=== PATIENT | female | born 1950 | race Caucasian/White ===

== ENCOUNTER 2017-10-01 10:35 | Outpatient (CLI) | payer MEDICARE, OTHER ==
[2017-10-01 11:25] LABS: CALCIUM 9.7 mg/dL (8.5-10.3); CREATININE 0.9 mg/dL (0.4-1.0)
== END 2017-10-01 10:36 | disposition home or self-care (01) ==
LOC: LAB 10:35
PROVIDERS: ATTEND Internal Medicine
DX: M81.0 Age-related osteoporosis without current pathological fracture (principal); Z79.899 Other long term (current) drug therapy
CPT/HCPCS: 36415; 80048

== ENCOUNTER 2017-10-26 09:23 | Outpatient (CLI) | payer MEDICARE, OTHER ==
--- NOTE | 2017-10-26 20:57 | CT Report ---
DATE OF SERVICE: 10/26/2017 CT BRAIN WITHOUT CONTRAST: 10/26/2017 CLINICAL INDICATION: Four-week followup left subdural hematoma. Axial CT images of the brain were obtained without contrast. In accordance with CT protocol optimization, one or more of the following dose reduction techniques were utilized for this exam: Automated exposure control, adjustment of mA and/or KV based on patient size, or use of iterative reconstructive technique. COMPARISON: MRA from [place], [place], dated 09/29/2017 The ventricles and sulci demonstrate moderate symmetric enlargement, compatible with atrophy. There is a left transfrontal ventriculostomy catheter terminating at the midline , and a tract from a previous right transfrontal ventriculostomy catheter is noted in the right frontal white matter. There is a subacute left subdural hematoma, measuring 9 mm at the superior margin of the left lateral ventricle (previously 12mm at a similar level). There is no significant mass effect upon the left lateral ventricle, and no significant midline shift. The basilar cisterns are patent. 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 The visualized orbital contents and paranasal sinuses are unremarkable. IMPRESSION: Subacute left subdural hematoma, decreasing in size from previous MRA, without significant mass effect or midline shift. Left transfrontal ventriculostomy catheter terminating at the midline. TD: 10/26/2017 21:56 HARDY
== END 2017-10-26 09:24 | disposition home or self-care (01) ==
LOC: DI 09:23
PROVIDERS: ATTEND Neurological Surgery
DX: I62.00 Nontraumatic subdural hemorrhage, unspecified (principal)
CPT/HCPCS: 70450

== ENCOUNTER 2017-11-25 09:16 | Outpatient (CLI) | payer MEDICARE, OTHER ==
[2017-11-25 09:43] LABS: BASOPHILS % (AUTO) 0.5 %; EOSINOPHILS # (AUTO) 0.1 10^3/uL (0.0-0.7); EOSINOPHILS % (AUTO) 0.9 %; HGB - HEMOGLOBIN 14.1 g/dL (12.0-16.0); LYMPHOCYTES # (AUTO) 0.8 10^3/uL (1.5-3.5); LYMPHOCYTES % (AUTO) 13.4 %; MEAN CORPUSCULAR HEMOGLOBIN 31.7 pg (27.0-31.0); MEAN CORPUSCULAR HGB CONC 34.4 g/dL (32.0-36.0); MEAN CORPUSCULAR VOLUME 92.4 fL (81.0-99.0); MEAN PLATELET VOLUME 7.3 fL (7.9-10.8); MONOCYTES # (AUTO) 0.5 10^3/uL (0.0-1.0); MONOCYTES % (AUTO) 7.9 %; NEUTROPHILS # (AUTO) 4.8 10^3/uL (1.5-6.6); NEUTROPHILS % (AUTO) 77.3 %; PLT - PLATELET COUNT 200 10^3/uL (130-450); RED BLOOD COUNT 4.44 10^6/uL (4.20-5.40); RED CELL DISTRIBUTION WIDTH 13.1 % (12.0-15.0); WHITE BLOOD COUNT 6.2 x10^3/uL (4.8-10.8)
[2017-11-25 10:10] LABS: ALBUMIN 4.2 g/dL (3.2-5.5); ALBUMIN/GLOBULIN RATIO 1.6 (1.0-2.2); BILIRUBIN,TOTAL 0.7 mg/dL (0.2-1.0); CREATININE 0.7 mg/dL (0.4-1.0); TOTAL PROTEIN 6.8 g/dL (6.7-8.2)
== END 2017-11-25 09:17 | disposition home or self-care (01) ==
LOC: LAB 09:16
PROVIDERS: ATTEND Internal Medicine
DX: M81.0 Age-related osteoporosis without current pathological fracture (principal); Q28.3 Other malformations of cerebral vessels; Z91.89 Other specified personal risk factors, not elsewhere classified; Z79.899 Other long term (current) drug therapy
CPT/HCPCS: 36415; 80053; 84443; 85025

== ENCOUNTER 2017-12-07 10:47 | Outpatient (CLI) | payer MEDICARE, OTHER ==
--- NOTE | 2017-12-07 13:29 | CT Report ---
NONCONTRAST HEAD CT: 12/07/2017. COMPARISON: Head CT 10/26/2017. INDICATION: Follow up subdural hematoma. TECHNIQUE: Noncontrast axial imaging of the head was performed with coronal reformat. FINDINGS: Left subdural hematoma is less prominent and isoattenuating. It measures approximately 6 mm across. Minimal right midline shift perhaps 1-2 mm is a stable finding. A left frontal approach shunt is a stable finding. No new or acute hemorrhage is demonstrated. Nixon-white differentiation appears otherwise intact. No intracranial mass is seen in other regards The paranasal sinuses and mastoid air cells appear well aerated. Orbits and soft tissues appear grossly unremarkable. IMPRESSION: 1. CHRONIC LEFT FRONTAL SUBDURAL HEMATOMA HAS DECREASED IN SIZE AND CONSPICUITY , AND ALSO DECREASED IN ATTENUATION, NOW ISOATTENUATING HAVING A CHRONIC APPEARANCE. 2. STABLE LEFT FRONTAL APPROACH SHUNT. CT DOSE REDUCTION STATEMENT In accordance with CT protocol optimization, one or more of the following dose reduction techniques were utilized for this exam: automated exposure control, adjustment of mA and/or KV based on patient size, or use of iterative reconstructive technique. TD: 12/07/2017 13:28 MTDD
== END 2017-12-07 10:48 | disposition home or self-care (01) ==
LOC: DI 10:47
PROVIDERS: ATTEND Neurological Surgery
DX: I62.00 Nontraumatic subdural hemorrhage, unspecified (principal)
CPT/HCPCS: 70450

== ENCOUNTER 2018-01-18 11:21 | Outpatient (CLI) | payer MEDICARE, OTHER ==
--- NOTE | 2018-01-18 13:16 | CT Report ---
CT BRAIN WITHOUT CONTRAST: 01/18/2018 CLINICAL INDICATION: Subdural hematoma. COMPARISON: 12/07/2017. TECHNIQUE: Axial CT images of the brain were obtained without intravenous contrast. FINDINGS: The ventricles and sulci demonstrate symmetric enlargement, compatible with atrophy. Left frontal lobe infarction, aneurysm coils, left transfrontal ventriculostomy catheter appears stable. The left subdural hematoma has decreased in size, now only measuring 2 mm in thickness, with less extent around the left cerebral hemisphere. Previous right frontal calixto hole appears stable. No new infarction or hemorrhage is identified. The visualized orbital contents and paranasal sinuses are unremarkable. IMPRESSION: INTERVAL DECREASE IN SIZE OF LEFT SUBDURAL HEMATOMA, NOW ONLY MEASURING 2 MM IN THICKNESS. STABLE VENTRICULOSTOMY CATHETER AND ANEURYSM COILS. STABLE LEFT FRONTAL INFARCTION. CT DOSE REDUCTION STATEMENT In accordance with CT protocol optimization, one or more of the following dose reduction techniques were utilized for this exam: automated exposure control, adjustment of mA and/or KV based on patient size, or use of iterative reconstructive technique. TD: 01/18/2018 13:14
== END 2018-01-18 11:22 | disposition home or self-care (01) ==
LOC: DI 11:21
PROVIDERS: ATTEND Neurological Surgery
DX: I62.00 Nontraumatic subdural hemorrhage, unspecified (principal)
CPT/HCPCS: 70450

== ENCOUNTER 2018-03-22 07:59 | Outpatient (CLI) | payer MEDICARE, OTHER ==
--- NOTE | 2018-03-22 09:07 | CT Report ---
Procedure Date: 03/22/2018 Accession Number: [id number] / [id number] Procedure: CT - Head W/O CPT Code: FULL RESULT: EXAM: Head W/O DATE: 03/22/2018 8:11 AM CLINICAL HISTORY: SDH,HYDROCEPHALUS COMPARISON: 01/18/2018 TECHNIQUE: Multiaxial CT images were obtained from the foramen magnum to the vertex. IV contrast: None. Reformats: Coronal. In accordance with CT protocol optimization, one or more of the following dose reduction techniques were utilized for this exam: automated exposure control, adjustment of mA and/or KV based on patient size, or use of iterative reconstructive technique. FINDINGS: Parenchyma: Ischemic changes in the frontal lobes are stable. No new infarction is identified. No intraparenchymal hematoma. Extraaxial Spaces: Complete resolution of previously seen residual left subdural hematoma. Ventricles: Stable size. Stable left transfrontal ventriculostomy catheter. Sinuses: Imaged paranasal sinuses, orbits, and mastoids show no significant abnormality. Bones: No evidence of fracture or calvarial defect. Other: Aneurysm coils in the expected location of the anterior communicating artery. IMPRESSION: Resolution of left subdural hematoma. Stable ischemic changes and hardware. No evidence of acute hemorrhage or new infarction. RADIA
== END 2018-03-22 08:00 | disposition home or self-care (01) ==
LOC: DI 07:59
PROVIDERS: ATTEND Neurological Surgery
DX: I67.82 Cerebral ischemia (principal)
CPT/HCPCS: 70450

== ENCOUNTER 2018-04-27 08:00 | Outpatient (CLI) | payer MEDICARE, OTHER | END 2018-04-27 08:01 | LOC: LAB.R 08:00 | PROVIDERS: ATTEND Internal Medicine | DX: N39.0 Urinary tract infection, site not specified (principal) | CPT/HCPCS: 87086 ==

== ENCOUNTER 2018-05-16 08:00 | Outpatient (CLI) | payer MEDICARE, OTHER | END 2018-05-16 08:01 | LOC: LAB.R 08:00 | PROVIDERS: ATTEND Physician Assistant Medical | DX: R30.0 Dysuria (principal) | CPT/HCPCS: 87086; 87181 ==

== ENCOUNTER 2018-06-01 12:25 | Outpatient (CLI) | payer MEDICARE, OTHER ==
--- NOTE | 2018-06-01 13:05 | CT Report ---
Reason: HYDROCEPHALUS Procedure Date: 06/01/2018 Accession Number: [id number] / [id number] Procedure: CT - Head W/O CPT Code: FULL RESULT: EXAM: CT HEAD EXAM DATE: 06/01/2018 12:34 PM. CLINICAL HISTORY: HYDROCEPHALUS. COMPARISON: 01/18/2018 and 03/22/2018. TECHNIQUE: Multiaxial CT images were obtained from the foramen magnum to the vertex. Reformats: Sagittal and coronal. IV contrast: None. In accordance with CT protocol optimization, one or more of the following dose reduction techniques were utilized for this exam: automated exposure control, adjustment of mA and/or KV based on patient size, or use of iterative reconstructive technique. FINDINGS: Left frontal ventriculostomy catheter as before. Slightly smaller transverse anterior third ventricular measurement currently 11 mm, previously 12 mm. Dilated temporal horns stable. Focal areas of left greater than right frontal encephalomalacia unchanged. No areas of acute hemorrhage, significant extra-axial collection, mass or mass effect. Stable bifrontal calixto holes and suprasellar aneurysm clip. IMPRESSION: Stable head CT compared with 03/22/2018 with particular reference to ventricular size status post ventriculostomy placement. RADIA
== END 2018-06-01 12:26 | disposition home or self-care (01) ==
LOC: DI 12:25
PROVIDERS: ATTEND Neurological Surgery
DX: G91.9 Hydrocephalus, unspecified (principal); Z98.2 Presence of cerebrospinal fluid drainage device
CPT/HCPCS: 70450

== ENCOUNTER 2018-06-06 11:37 | Outpatient (CLI) | payer MEDICARE, OTHER ==
[2018-06-06 15:51] LABS: BASOPHILS % (AUTO) 0.6 %; EOSINOPHILS % (AUTO) 0.8 %; HGB - HEMOGLOBIN 14.4 g/dL (12.0-16.0); LYMPHOCYTES # (AUTO) 1.1 10^3/uL (1.5-3.5); LYMPHOCYTES % (AUTO) 31.3 %; MEAN CORPUSCULAR HEMOGLOBIN 31.8 pg (27.0-31.0); MEAN CORPUSCULAR HGB CONC 34.8 g/dL (32.0-36.0); MEAN CORPUSCULAR VOLUME 91.5 fL (81.0-99.0); MEAN PLATELET VOLUME 7.8 fL (7.9-10.8); MONOCYTES # (AUTO) 0.3 10^3/uL (0.0-1.0); MONOCYTES % (AUTO) 8.9 %; NEUTROPHILS # (AUTO) 2.1 10^3/uL (1.5-6.6); NEUTROPHILS % (AUTO) 58.4 %; PLT - PLATELET COUNT 217 10^3/uL (130-450); RED BLOOD COUNT 4.51 10^6/uL (4.20-5.40); RED CELL DISTRIBUTION WIDTH 13.1 % (12.0-15.0); WHITE BLOOD COUNT 3.6 x10^3/uL (4.8-10.8)
[2018-06-06 15:57] LABS: ALBUMIN 4.1 g/dL (3.2-5.5); ALBUMIN/GLOBULIN RATIO 1.4 (1.0-2.2); BILIRUBIN,TOTAL 0.5 mg/dL (0.2-1.0); CALCIUM 9.3 mg/dL (8.5-10.3); CREATININE 0.8 mg/dL (0.4-1.0)
== END 2018-06-06 11:38 | disposition home or self-care (01) ==
LOC: LAB.R 11:37
PROVIDERS: ATTEND Internal Medicine
DX: Z93.4 Other artificial openings of gastrointestinal tract status (principal); Z91.89 Other specified personal risk factors, not elsewhere classified
CPT/HCPCS: 80053; 85025

== ENCOUNTER 2018-09-08 08:00 | Outpatient (CLI) | payer MEDICARE, OTHER | END 2018-09-08 23:59 | LOC: LAB.R 08:00 | PROVIDERS: ATTEND Internal Medicine | DX: N39.0 Urinary tract infection, site not specified (principal) | CPT/HCPCS: 87086 ==

== ENCOUNTER 2018-09-09 09:15 | Outpatient (CLI) | payer MEDICARE, OTHER ==
--- NOTE | 2018-09-12 18:56 | DEXA Report ---
Reason: OSTEOPOROSIS Procedure Date: 09/09/2018 Accession Number: [id number] / [id number] Procedure: DEX - Dexa Spine and/or Hip CPT Code: FULL RESULT: EXAM: Dexa Spine and/or Hip DATE: 09/09/2018 9:53 AM CLINICAL HISTORY: OSTEOPOROSIS TECHNIQUE: Dual energy x-ray absorptiometry (DXA) was performed on a Induction Manager System. Regions measured are the AP Spine, femoral neck, and if needed forearm. COMPARISON: None. In accordance with the International Society for Clinical Densitometry (ISCD) guidelines, data from previous exams may be reanalyzed using current recommendations and techniques. This is done to allow a more accurate basis for comparison with the current study. FINDINGS: The data for the lumbar spine is as follows: BMD (g/cm/cm) T-SCORE Z-SCORE REGION L1 0.793 -2.8 -0.8 L2 0.863 -2.8 -0.8 L3 0.884 -2.6 -0.7 L4 0.930 -2.2 -0.3 TOTAL 0.876 -2.5 -0.6 NOTE: All evaluable vertebrae are used for classification The data for the hip is as follows: BMD (g/cm/cm) T-SCORE Z-SCORE REGION Neck 0.563 -3.4 -1.6 TOTAL 0.624 -3.0 -1.5 NOTE: The femoral neck or total proximal femur, whichever is lowest, is used for classification. IMPRESSION: THE WHO CLASSIFICATION BASED ON THE INTERNATIONAL REFERENCE STANDARD IS OSTEOPOROSIS. THE FRACTURE RISK IS HIGH. RECOMMENDATION: Patients with diagnosis of osteoporosis or osteopenia should have regular bone mineral density assessment. For those eligible for Medicare, routine testing is allowed once every 2 years. Testing frequency can be increased for patients who have rapidly progressing disease or for those who are receiving medical therapy to restore bone mass. COMMENT: World Health Organization (WHO) definitions for osteoporosis and osteopenia: NORMAL BMD: T-score at -1.0 or higher, fracture risk is low OSTEOPENIA BMD: T-score between -1.0 and -2.5, fracture risk is increased. OSTEOPOROSIS BMD: T-score at -2.5 or lower, fracture risk is high. National Osteoporosis Foundation recommends: 1. Obtain adequate dietary calcium (at least 1200 mg per day) and vitamin D (400-800 international units per day). 2. Participate, as appropriate, in regular weightbearing and muscle-strengthening exercise. 3. Avoid tobacco use and reduce alcohol and caffeine intake. 4. For more detailed information see the website at www.NOF.org.
== END 2018-09-09 09:16 | disposition home or self-care (01) ==
LOC: DI 09:15
PROVIDERS: ATTEND Internal Medicine
DX: M81.0 Age-related osteoporosis without current pathological fracture (principal); Z78.0 Asymptomatic menopausal state
CPT/HCPCS: 77080

== ENCOUNTER 2018-09-30 08:25 | Outpatient (CLI) | payer MEDICARE, OTHER | END 2018-09-30 23:59 | disposition home or self-care (01) | LOC: LAB.R 08:25 | PROVIDERS: ATTEND Internal Medicine | DX: N39.0 Urinary tract infection, site not specified (principal) | CPT/HCPCS: 87077; 87086; 87181 ==

== ENCOUNTER 2018-10-26 14:42 | Outpatient (CLI) | payer MEDICARE, OTHER | END 2018-10-26 23:59 | disposition home or self-care (01) | LOC: LAB.R 14:42 | PROVIDERS: ATTEND Internal Medicine | DX: N39.0 Urinary tract infection, site not specified (principal) | CPT/HCPCS: 87077; 87086; 87181 ==

== ENCOUNTER 2019-03-24 11:55 | Outpatient (CLI) | payer MEDICARE, OTHER ==
[2019-03-24 12:18] LABS: BILIRUBIN,URINE NEGATIVE (NEGATIVE); GLUCOSE, URINE (UA) NEGATIVE (NEGATIVE); KETONES,URINE (UA) NEGATIVE (NEGATIVE); LEUKOCYTE ESTERASE, URINE NEGATIVE (NEGATIVE); NITRITE,URINE NEGATIVE (NEGATIVE); OCCULT BLOOD,URINE NEGATIVE (NEGATIVE); PH,URINE 7.5 PH (5.0-7.5); PROTEIN,URINE NEGATIVE (NEGATIVE); UROBILINOGEN,URINE 0.2 (NORMAL) E.U./dL (NORMAL)
[2019-03-24 12:22] LABS: CLARITY,URINE CLOUDY (CLEAR)
[2019-03-24 12:36] LABS: AMORPHOUS SEDIMENT,UR Moderate /LPF; BACTERIA,URINE Moderate /HPF (None Seen); RBC,URINE 0-5 /HPF (0-5); SQUAMOUS EPITHELIAL CELL,UR FEW Squamous (<= Few)
== END 2019-03-24 23:59 | disposition home or self-care (01) ==
LOC: LAB.R 11:55
PROVIDERS: ATTEND Internal Medicine
DX: N30.00 Acute cystitis without hematuria (principal)
CPT/HCPCS: 81001; 81003; 87086

== ENCOUNTER 2019-06-07 10:52 | Outpatient (CLI) | payer MEDICARE, OTHER ==
[2019-06-07 11:19] LABS: BASOPHILS # (AUTO) 0.1 10^3/uL (0.0-0.1); BASOPHILS % (AUTO) 1.6 %; EOSINOPHILS % (AUTO) 1.3 %; HGB - HEMOGLOBIN 14.9 g/dL (12.0-16.0); LYMPHOCYTES % (AUTO) 33.3 %; MEAN CORPUSCULAR HEMOGLOBIN 31.3 pg (27.0-31.0); MEAN PLATELET VOLUME 8.6 fL (7.9-10.8); MONOCYTES # (AUTO) 0.3 10^3/uL (0.0-1.0); MONOCYTES % (AUTO) 10.8 %; NEUTROPHILS # (AUTO) 1.6 10^3/uL (1.5-6.6); PLT - PLATELET COUNT 234 10^3/uL (130-450); RED BLOOD COUNT 4.76 10^6/uL (4.20-5.40); RED CELL DISTRIBUTION WIDTH 12.2 % (12.0-15.0); WHITE BLOOD COUNT 3.1 x10^3/uL (4.8-10.8)
[2019-06-07 12:40] LABS: ALBUMIN 4.2 g/dL (3.2-5.5); ALBUMIN/GLOBULIN RATIO 1.6 (1.0-2.2); BILIRUBIN,TOTAL 1.1 mg/dL (0.2-1.0); CALCIUM 9.4 mg/dL (8.5-10.3); CREATININE 0.9 mg/dL (0.4-1.0); TOTAL PROTEIN 6.8 g/dL (6.7-8.2)
== END 2019-06-07 10:53 | disposition home or self-care (01) ==
LOC: LAB 10:52
PROVIDERS: ATTEND Nurse Practitioner
DX: Z79.899 Other long term (current) drug therapy (principal); R63.4 Abnormal weight loss
CPT/HCPCS: 36415; 80053; 84443; 85025

== ENCOUNTER 2019-07-27 11:20 | Outpatient (CLI) | payer MEDICARE, OTHER ==
[2019-07-27 11:39] LABS: BASOPHILS % (AUTO) 0.9 %; EOSINOPHILS % (AUTO) 0.7 %; HGB - HEMOGLOBIN 15.1 g/dL (12.0-16.0); LYMPHOCYTES # (AUTO) 0.9 10^3/uL (1.5-3.5); LYMPHOCYTES % (AUTO) 19.9 %; MEAN CORPUSCULAR HGB CONC 34.8 g/dL (32.0-36.0); MEAN CORPUSCULAR VOLUME 91.9 fL (81.0-99.0); MEAN PLATELET VOLUME 8.6 fL (7.9-10.8); MONOCYTES # (AUTO) 0.5 10^3/uL (0.0-1.0); MONOCYTES % (AUTO) 10.9 %; NEUTROPHILS # (AUTO) 3.1 10^3/uL (1.5-6.6); NEUTROPHILS % (AUTO) 67.4 %; PLT - PLATELET COUNT 254 10^3/uL (130-450); RED BLOOD COUNT 4.72 10^6/uL (4.20-5.40); RED CELL DISTRIBUTION WIDTH 12.2 % (12.0-15.0); WHITE BLOOD COUNT 4.6 x10^3/uL (4.8-10.8)
== END 2019-07-27 11:21 | disposition home or self-care (01) ==
LOC: LAB 11:20
PROVIDERS: ATTEND Nurse Practitioner
DX: D72.819 Decreased white blood cell count, unspecified (principal)
CPT/HCPCS: 36415; 85025

== ENCOUNTER 2019-08-15 11:13 | Outpatient (CLI) | payer MEDICARE, OTHER | END 2019-08-15 11:14 | disposition home or self-care (01) | LOC: LAB 11:13 | PROVIDERS: ATTEND Nurse Practitioner | DX: Z79.899 Other long term (current) drug therapy (principal); R45.1 Restlessness and agitation | CPT/HCPCS: 36415; 80335; 81599 ==

== ENCOUNTER 2019-08-18 12:57 | Outpatient (CLI) | payer MEDICARE, OTHER ==
--- NOTE | 2019-08-19 03:54 | CT Report ---
Reason: PRESENCE OF VENTRICULE SHUN Procedure Date: 08/18/2019 Accession Number: [id number] / [id number] Procedure: CT - HEAD WO CPT Code: Final Report FULL RESULT: EXAM: CT HEAD EXAM DATE: 08/18/2019 01:12 PM. CLINICAL HISTORY: History of hydrocephalus with ventricular shunt in place. COMPARISON: HEAD W/O 06/01/2018 12:33 PM. TECHNIQUE: Multiaxial CT images were obtained from the foramen magnum to the vertex. Reformats: Sagittal and coronal. IV contrast: None. In accordance with CT protocol optimization, one or more of the following dose reduction techniques were utilized for this exam: automated exposure control, adjustment of mA and/or KV based on patient size, or use of iterative reconstructive technique. FINDINGS: Parenchyma: No intraparenchymal hemorrhage. Linear bands of encephalomalacia are present in the bilateral frontal lobes, likely due to the presence of the left and prior presence of a right ventricular shunt. A geographic area of hypodensity is also noted in the inferior left frontal lobe, likely related to previous head trauma. Nixon-white differentiation is distinct. Extraaxial Spaces: There is a new small subacute to chronic subdural hematoma in the left frontal region measuring 4 mm. No superimposed acute blood products are seen. The basal cisterns are patent. Ventricles: The ventricles and cortical sulci are enlarged, stable. The ventricles remain midline. Sinuses and orbits: Imaged paranasal sinuses, orbits, and mastoids show no significant abnormality. Bones: A left frontal approach ventricular shunt is again seen with the tip of the catheter ending at the septum pellucidum. There is no evidence of kinking or discontinuity in the visualized portions of the shunt. A right frontal calixto hole is noted, likely related to previous shunting. 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 IMPRESSION: 1. Compared to the brain CT from 06/01/18, there is a new but subacute to chronic appearing left frontal subdural hematoma measuring 4 mm. 2. Stable ventriculomegaly with stable position of the left frontal approach ventricular shunt. 3. Stable areas of encephalomalacia in the bilateral frontal lobe. 4. Stable position of a known coil mass. RADIA
== END 2019-08-18 12:58 | disposition home or self-care (01) ==
LOC: DI 12:57
PROVIDERS: ATTEND Nurse Practitioner
DX: I62.02 Nontraumatic subacute subdural hemorrhage (principal); G93.89 Other specified disorders of brain; Z98.2 Presence of cerebrospinal fluid drainage device
CPT/HCPCS: 70450